=== PATIENT | female | born 1995 | race Caucasian/White ===

== ENCOUNTER 2018-10-21 13:53 | Emergency (ER) | payer SELFPAY ==
[~2018-10-21] VITALS: Ht 162.6 cm; Wt 101.0 kg
[2018-10-21] MEDS ORDERED: IBUPROFEN 600MG TABLET PO ONE (17:30)
[2018-10-21 18:02] VITALS: BP 131/77
== END 2018-10-21 18:03 | disposition home or self-care (01) ==
LOC: ER 13:53
DX: S83.011A Lateral subluxation of right patella, initial encounter (principal); S00.83XA Contusion of other part of head, initial encounter; F17.200 Nicotine dependence, unspecified, uncomplicated; V43.62XA Car passenger injured in collision with other type car in traffic accident, initial encounter; Y93.89 Activity, other specified; Y92.89 Other specified places as the place of occurrence of the external cause; Y99.8 Other external cause status
CPT/HCPCS: 73560; 81025; 99283

== ENCOUNTER 2025-08-19 23:21 | Emergency (ER) | payer OTHER ==
[~2025-08-19] VITALS: Ht 165.1 cm; Wt 113.0 kg
[2025-08-20] VITALS: O2SAT 98
[2025-08-20] MEDS: KETOROLAC 15MG/ML VIAL IM ONE (01:19)
[2025-08-20] MEDS ORDERED: AMOX1TAB16 MT (01:40)
[2025-08-20 02:32] VITALS: BP 135/75; PULSE 75; RESP 18; TEMP 36.7; O2SAT 98
== END 2025-08-20 02:35 | disposition home or self-care (01) ==
LOC: ER 23:21
DX: L08.89 Other specified local infections of the skin and subcutaneous tissue (principal)
CPT/HCPCS: 99283; 81025; 73130; 96372; J1885